=== PATIENT | female | born 1965 | race Caucasian/White ===

== ENCOUNTER 2023-03-23 04:15 | Inpatient (IN) | payer MEDICAID ==
[~2023-03-23] VITALS: Ht 157.5 cm; Wt 73.6 kg
[2023-03-23] MEDS ORDERED: LABETALOL HCL 5 MG/ML 4ML SYRINGE IV ONE (04:45)
[2023-03-23] MEDS ORDERED: ONDANSETRON HCL 4 MG/2 ML VIAL IV ONE (04:45)
[2023-03-23 05:28] VITALS: PULSE 73; RESP 18; O2SAT 96
[2023-03-23 05:52] LABS: Basophils # (auto) 0 10 ^3/uL (0-0.2); Basophils % (auto) 0.3 % (0.0-2.0); Eosinophils # (auto) 0 10 ^3/uL (0-0.8); Hematocrit 45.8 % (36.0-46.0); Hemoglobin 15.4 g/dL (12.2-16.2); Lymphocytes # (auto) 0.8 10 ^3/uL (0.4-5.4); Lymphocytes % (auto) 7.1 % (10.0-50.0); Mean Corpuscular Hemoglobin 31.3 pg (28.0-32.0); Mean Corpuscular Hgb Conc. 33.7 g/dL (32.0-36.0); Monocytes # (auto) 0.3 10 ^3/uL (0-1.3); Monocytes % (auto) 2.5 % (0.0-12.0); Neutrophils # (auto) 10.1 10 ^3/uL (1.6-8.6); Neutrophils % (auto) 90.1 % (37.0-80.0); Nucleated Red Blood Cells % 0.1 %; Red Blood Cells 4.92 10^6/uL (4.0-5.20); Red Cell Distribution Width 14.3 % (11.8-14.3); White Blood Cell 11.2 10^3/uL (4.4-10.8)
[2023-03-23 06:11] LABS: Potassium 3.3 mmol/L (3.5-5.1)
[2023-03-23 06:20] LABS: Albumin 4.2 g/dL (3.4-5.0); BUN/Creatinine Ratio 16.1 (10.0-20.0); Bilirubin, Total 0.3 mg/dL (0.2-1.0); Calcium 10.2 mg/dL (8.5-10.1); Total Protein 8.6 g/dL (6.4-8.2)
[2023-03-23] MEDS ORDERED: MORPHINE SULFATE 4 MG/ML SYR/VIAL IV ONE (06:45)
[2023-03-23] MEDS ORDERED: PROCHLORPERAZINE EDISYLATE 5 MG/ML 2ML VIAL IV ONE (06:45)
[2023-03-23] MEDS ORDERED: SODIUM CHLORIDE 0.9% 500 ML IVB ONE (06:45)
[2023-03-23] MEDS ORDERED: cloNIDine HCL 0.1 MG TAB PO ONE (07:15)
[2023-03-23 08:00] VITALS: PULSE 78; RESP 17; O2SAT 96
[2023-03-23] MEDS ORDERED: POTASSIUM CHL 20 Meq TABLET PO ONE (08:45)
[2023-03-23 10:00] VITALS: TEMP 98.6
[2023-03-23] MEDS ORDERED: hydrALAZINE HCL 20 MG/ML VL IV ONE (10:00)
[2023-03-23] MEDS ORDERED: hydrALAZINE HCL 20 MG/ML VL IV PRN (10:45)
[2023-03-23] MEDS ORDERED: ONDANSETRON HCL 4 MG/2 ML VIAL IV PRN (10:45)
[2023-03-23] MEDS ORDERED: MORPHINE SULFATE INJ 2 MG/ml SYRG IV PRN (10:45)
[2023-03-23] MEDS ORDERED: DEXTROSE (50%) 50ML SYRG IV PRN (10:45)
[2023-03-23] MEDS ORDERED: DOCUSATE SOD 100 MG CAP PO PRN (10:45)
[2023-03-23] MEDS ORDERED: SODIUM CHLORIDE 0.9% 1,000 ML IV SCH (10:45)
[2023-03-23] MEDS ORDERED: InsuLIN REG 1unit/0.01ml Soln (100units/ml) SC SCH (11:30)
[2023-03-23] MEDS ORDERED: ACCU-CHEK COMFORT CURVE STRIP VI SCH (11:30)
[2023-03-23] MEDS ORDERED: PROCHLORPERAZINE EDISYLATE 5 MG/ML 2ML VIAL IV PRN (12:00)
[2023-03-23 14:00] VITALS: BP 124/78; PULSE 92; RESP 17; O2SAT 98
[2023-03-23 14:13] LABS: INR 1.03 (0.9-1.15); Prothrombin Time 10.8 sec (9.3-11.8)
[2023-03-23] MEDS ORDERED: ATORVASTATIN 20 MG TAB PO SCH (22:00)
[2023-03-23] MEDS ORDERED: METOPROLOL TARTRATE 25 MG TAB PO SCH (22:00)
[2023-03-24] MEDS ORDERED: ASPirin 81 mg TAB PO SCH (10:00)
== END 2023-03-23 14:50 | disposition left against medical advice (07) | DRG 199 ==
LOC: ER 04:15 → OVERFLOW 10:51
PROVIDERS: ADMIT Nurse Practitioner Family; ATTEND Nurse Practitioner Family
DX: I16.1 Hypertensive emergency (principal); N17.9 Acute kidney failure, unspecified; I24.9 Acute ischemic heart disease, unspecified; D72.829 Elevated white blood cell count, unspecified; E87.6 Hypokalemia; G89.29 Other chronic pain; I10 Essential (primary) hypertension; E86.0 Dehydration; R51.9 Headache, unspecified; Z53.29 Procedure and treatment not carried out because of patient's decision for other reasons; F41.9 Anxiety disorder, unspecified; M54.9 Dorsalgia, unspecified; R73.9 Hyperglycemia, unspecified; Z98.51 Tubal ligation status
CPT/HCPCS: 36415; 70450; 74176; 80053; 82962; 83036; 83690; 84484; 85025; 85610; 93005; 93306; 96374; 96375; G0378; J2405; J3490

== ENCOUNTER 2023-11-23 11:23 | Emergency (ER) | payer MEDICAID ==
[~2023-11-23] VITALS: Ht 157.5 cm; Wt 66.1 kg
[2023-11-23 11:32] VITALS: BP 149/64; PULSE 91; RESP 16; O2SAT 96
[2023-11-23 12:12] LABS: Basophils # (auto) 0 10 ^3/uL (0-0.2); Basophils % (auto) 0.3 % (0.0-2.0); Eosinophils # (auto) 0 10 ^3/uL (0-0.8); Eosinophils % (auto) 0.1 % (0.0-7.0); Hematocrit 43.5 % (36.0-46.0); Hemoglobin 14.7 g/dL (12.2-16.2); Lymphocytes # (auto) 1.7 10 ^3/uL (0.4-5.4); Mean Corpuscular Hemoglobin 31.5 pg (28.0-32.0); Mean Corpuscular Hgb Conc. 33.7 g/dL (32.0-36.0); Mean Corpuscular Volume 93.5 fL (80.0-100.0); Monocytes # (auto) 0.5 10 ^3/uL (0-1.3); Monocytes % (auto) 4.3 % (0.0-12.0); Neutrophils # (auto) 9.7 10 ^3/uL (1.6-8.6); Neutrophils % (auto) 81.3 % (37.0-80.0); Red Blood Cells 4.65 10^6/uL (4.0-5.20); Red Cell Distribution Width 15.5 % (11.8-14.3); White Blood Cell 11.9 10^3/uL (4.4-10.8)
[2023-11-23 12:16] LABS: Alanine Aminotransferase 23 U/L (7-40); Albumin 4.6 g/dL (3.2-4.8); Alkaline Phosphatase 97 U/L (46-116); Anion Gap 12 (5-15); Aspartate Aminotransferase 24 U/L (13-40); BUN/Creatinine Ratio 19.8 (10.0-20.0); Bilirubin, Total 0.8 mg/dL (0.2-1.0); Blood Urea Nitrogen 17 mg/dL (9-23); Calcium 10.2 mg/dL (8.5-10.1); Carbon Dioxide 20 mmol/L (20-30); Chloride 108 mmol/L (98-107); Glucose 145 mg/dL (74-106); Potassium 3.5 mmol/L (3.5-5.1); Sodium 140 mmol/L (136-145); Total Protein 7.1 g/dL (5.7-8.2)
[2023-11-23] MEDS ORDERED: ONDANSETRON HCL 4 MG/2 ML VIAL IV ONE (14:00)
[2023-11-23] MEDS ORDERED: SODIUM CHLORIDE 0.9% 1,000 ML IV ONE ×2 (14:00)
[2023-11-23] MEDS ORDERED: MORPHINE SULFATE 4 MG/ML SYR/VIAL IV ONE (14:00)
[2023-11-23] MEDS ORDERED: GABA-1250 PO (16:13)
[2023-11-23] MEDS ORDERED: TIZA-142 PO (16:13)
[2023-11-23] MEDS ORDERED: PANTOPRAZOLE 40 MG/10 ML VIAL INJ IV ONE (16:15)
[2023-11-23] MEDS ORDERED: metroNIDAZOLE 500MG/100ML 100 ML IV ONE (16:15)
[2023-11-23] MEDS ORDERED: cefTRIAXone 1GM/50ML D5W 50 ML IV ONE (16:15)
[2023-11-23] MEDS ORDERED: KETOROLAC TROMETH 30 MG/ML 1ML VIAL IV ONE (16:15)
[2023-11-23] MEDS ORDERED: ACETAMINOPHEN 325 MG TAB PO PRN (16:15)
[2023-11-23] MEDS ORDERED: ONDANSETRON HCL 4 MG/2 ML VIAL IV PRN (16:15)
[2023-11-23] MEDS ORDERED: SODIUM CHLORIDE 0.9% 1,000 ML IV SCH (16:15)
[2023-11-23] MEDS ORDERED: TIZANIDINE HYDROCHLORIDE PO PRN (16:15)
[2023-11-23] MEDS ORDERED: metroNIDAZOLE 500MG/100ML 100 ML IV SCH (22:00)
[2023-11-24] MEDS ORDERED: cefTRIAXone 1GM/50ML D5W 50 ML IV SCH (09:00)
[2023-11-24] MEDS ORDERED: PANTOPRAZOLE 40 MG/10 ML VIAL INJ IV SCH (10:00)
[2023-11-24] MEDS ORDERED: GABAPENTIN 300 MG CAP PO SCH (10:00)
[2023-11-24] MEDS ORDERED: ENOXAPARIN SOD 40 MG/0.4 ML SYRINGE SC SCH (10:00)
== END 2023-11-23 13:40 | disposition left against medical advice (07) ==
LOC: ER 11:23 → OVERFLOW 16:10 → UNDOADMIN 16:10
DX: R10.13 Epigastric pain (principal); I10 Essential (primary) hypertension; F41.9 Anxiety disorder, unspecified; F15.90 Other stimulant use, unspecified, uncomplicated; Z98.890 Other specified postprocedural states
CPT/HCPCS: 36415; 80053; 85025

== ENCOUNTER 2025-04-26 10:12 | Inpatient (IN) | payer MEDICAID, OTHER ==
[~2025-04-26] VITALS: Ht 157.5 cm; Wt 68.6 kg
[~2025-04-26 10:12] MED LIST: GABA-1250 PO; TIZA-142 PO
--- NOTE | 2025-04-26 10:22 | ED.PDOC ---
GI ASSESSMENT HPI Comments 59-year-old female presents here with abdominal pain and vomiting that began 3 days ago. She states she had a massage done at a normal place earlier in the day and 830 that evening began to have abdominal pain and vomiting. Denies any diarrhea. Denies any cough cold runny nose fever or chills. No history was some type of pain. Denies any sick contacts. 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 History Family History Family History: Family hx of Cancer Social History Smoker: Non-Smoker Alcohol: Denies ETOH Use Drugs: Marijuana Lives In: Home All Other Systems: Reviewed and Negative Physical Exam General Appearance: Mild Distress, Normal HEENT: Normal ENT Inspection, Pharynx Normal, TMs Normal Neck: Full Range of Motion, Non-Tender, Normal, Normal Inspection Respiratory: Chest Non-Tender, Lungs Clear, No Accessory Muscle Use, No Respiratory Distress, Normal Breath Sounds Cardiovascular: No Edema, No JVD, No Murmur, No Gallop, Normal Peripheral Pulses, Regular Rate/Rhythm Breast Exam: Deferred Gastrointestinal: No Organomegaly, No Pulsatile Mass, Normal Bowel Sounds, Soft, Tenderness (Mild epigastric tenderness to palpation) Genitalia: Deferred Pelvic: Deferred Rectal: Deferred Extremities: No calf tenderness, Normal capillary refill, Normal inspection, Normal range of motion, Non-tender, No pedal edema Musculoskeletal : Apperance: Normal Neurologic: Alert, hydroponics worker II-XII nml as Tested, No Motor Deficits, Normal Affect, Normal Mood, No Sensory Deficits Cerebellar Function: Normal Reflexes: Normal Skin: Dry, Normal Color, Warm Lymphatic: No Adenopathy EKG EKG : Comments Rate is 68 significant artifact, no significant ST changes Was a procedure done? Was a procedure done?: No GI differential Dx Differential Diagnosis: Other Other Differential Diagnosis Gastritis esophagitis, cholecystitis, cholecystitis, biliary colic, small-bowel obstruction, gastric ulcer, dehydration, electrolyte disturbance X-Ray, Labs, Meds, VS Vital Signs Date Time Temp Pulse Resp B/P (MAP) Pulse Ox O2 Delivery O2 Flow Rate FiO2 04/26/25 13:28 78 18 155/96 04/26/25 12:28 69 18 172/95 04/26/25 12:23 69 18 98 Room Air 04/26/25 12:23 99.2 69 18 172/95 (120) 98 99.2 04/26/25 10:20 68 04/26/25 10:13 98.9 83 18 99 98.9 Lab Test 04/26/25 10:37 Range/Units White Blood Count 20.8 H 4.4-10.8 10^3/uL Red Blood Count 4.55 4.0-5.20 10^6/uL Hemoglobin 14.9 12.2-16.2 g/dL Hematocrit 43.3 36.0-46.0 % Mean Corpuscular Volume 95.2 80.0-100.0 fL Mean Corpuscular Hemoglobin 32.7 H 28.0-32.0 pg Mean Corpuscular Hemoglobin Concent 34.4 32.0-36.0 g/dL Red Cell Distribution Width 14.9 H 11.8-14.3 % Platelet Count 258 140-450 10^3/uL Mean Platelet Volume 8.3 6.9-10.8 fL Neutrophils (%) (Auto) 83.1 H 37.0-80.0 % Lymphocytes (%) (Auto) 9.2 L 10.0-50.0 % Monocytes (%) (Auto) 7.5 0.0-12.0 % Eosinophils (%) (Auto) 0.0 0.0-7.0 % Basophils (%) (Auto) 0.2 0.0-2.0 % Neutrophils # (Auto) 17.2 H 1.6-8.6 10 ^3/uL Lymphocytes # (Auto) 1.9 0.4-5.4 10 ^3/uL Monocytes # (Auto) 1.6 H 0-1.3 10 ^3/uL Eosinophils # (Auto) 0 0-0.8 10 ^3/uL Basophils # (Auto) 0 0-0.2 10 ^3/uL Nucleated Red Blood Cells 0.1 % Sodium Level 139 136-145 mmol/L Potassium Level 3.4 L 3.5-5.1 mmol/L Chloride Level 103 98-107 mmol/L Carbon Dioxide Level 21 20-31 mmol/L Anion Gap 15 5-15 Blood Urea Nitrogen 20 9-23 mg/dL Creatinine 1.03 H 0.550-1.02 mg/dL Glomerular Filtration Rate Calc 62 >90 mL/min BUN/Creatinine Ratio 19.4 10.0-20.0 Serum Glucose 142 H 74-106 mg/dL Calcium Level 10.4 8.7-10.4 mg/dL Total Bilirubin 1.1 H 0.2-1.0 mg/dL Aspartate Amino Transferase (AST) 43 H 13-40 U/L Alanine Aminotransferase (ALT) 22 7-40 U/L Alkaline Phosphatase 97 46-116 U/L Total Protein 8.3 H 5.7-8.2 g/dL Albumin 5.0 H 3.2-4.8 g/dL Lipase 32 12-53 U/L Plasma/Serum Blood Alcohol < 3.0 <10 mg/dL Current Medications Medications (Trade) Dose Ordered Sig/Avelina Route Start Time Stop Time Status Last Admin Al Hydrox/Mg Hydrox/Simethicone (Maalox Plus) 30 ml ONCE ONCE PO 04/26/25 10:30 04/26/25 10:31 DC 04/26/25 12:26 Ondansetron HCl (Zofran) 4 mg ONCE ONCE IV 04/26/25 10:30 04/26/25 10:31 DC 04/26/25 12:23 Sodium Chloride 500 ml @ 500 mls/hr Q1H ONCE IV 04/26/25 10:30 04/26/25 11:29 DC 04/26/25 12:22 Hydromorphone HCl (Dilaudid Injection) 0.5 mg ONCE ONCE IV 04/26/25 11:15 04/26/25 11:16 DC 04/26/25 12:[address] [address] Ph: [phone] DIAGNOSTIC IMAGING Diagnostic Imaging Report : [id number] Signed PATIENT: HUMBLE VICTORIA ACCT: [id number] UNIT: [id number] : 1965 LOC: ER ROOM / BED: / AGE / SEX: 59 / F ADM STATUS: REG ER SERVICE 1115 ORDERING PHYSICIAN: DELICIA DOLAN MD PROCEDURE(s): GBUS - GALLBLADDER REASON: Rule out cholecystitis ORDER NUMBER(s): [id number], ACCESSION NUMBER(s): [id number] INDICATION: Rule out cholecystitis TECHNIQUE: Multiple real-time sonographic images of the abdomen were obtained. COMPARISON: None FINDINGS: The liver is homogenous in echogenicity. No intrahepatic biliary ductal dilatation is noted. No hepatic masses were seen. The gallbladder wall measures mm and is normal in size. No gallstones or sludge are seen. The common duct measures mm and is normal in size. No pericholecystic fluid is noted. The right kidney measures cm and is normal in size. The right renal echogenicity, contour and cortical thickness are within normal limits. No hydronephrosis or large masses are seen. The left kidney measures cm and is normal in size. The left renal echogenicity, contour, and cortical thickness are within normal limits. No hydronephrosis or large masses are seen. The spleen measures cm, within normal limits. The echogenicity is within normal limits. The pancreas is not well visualized. The aorta is not well visualized. The ivc is not well visualized. IMPRESSION: 1. Normal exam of the abdomen. ATED BY: MICHELE GIBSON MD DICTATED DATE/TIME: 04/26/25 115 SIGNED BY: MICHELE GIBSON MD SIGNED DATE/TIME: 04/26/25 115 CC: [place] [address] Ph: [phone] DIAGNOSTIC IMAGING Diagnostic Imaging Report : [id number] Signed PATIENT: HUMBLE VICTORIA ACCT: [id number] UNIT: [id number] : 1965 LOC: ER ROOM / BED: / AGE / SEX: 59 / F ADM STATUS: REG ER SERVICE 1107 ORDERING PHYSICIAN: DELICIA DOLAN MD PROCEDURE(s): ABPL - CT AB PEL WO CON-NO ORAL OR IV REASON: Abdominal pain ORDER NUMBER(s): [id number], ACCESSION NUMBER(s): [id number] CT CT AB PEL WO CON-NO ORAL OR IV INDICATION: Abdominal pain EXAM DATE: 04/26/2025 11:14 AM COMPARISON: CT CT AB PEL WO CON-NO ORAL OR IV on DOS: 03/23/23 RADIATION DOSE: CTDIvol: 6.77 mGy, DLP: 322.55 mGy*cm PROCEDURE: Helical CT images were obtained of the abdomen and pelvis without IV contrast Sagittal and coronal reconstructions are provided. ORAL CONTRAST: None. ADDITIONAL IMAGES / REFORMATS: None All CT scans at this medical facility are performed using dose modulation techniques as appropriate to a performed exam including the following: Automated exposure control was utilized; adjustment of the MA and/or KV according to patient size; and use of iterative reconstruction technique. FINDINGS: LUNG BASE: Mild bibasilar atelectasis. LIVER: Normal. GALLBLADDER AND BILIARY TREE: No calcified gallstones. Normal caliber wall. No intra- or extrahepatic biliary ductal dilation. PANCREAS: Coarse calcification at the pancreatic head. SPLEEN: Normal. BOWEL: Moderate colonic diverticulosis. Normal appendix. ADRENALS: Normal. KIDNEYS AND URETER: Normal. BLADDER: Normal. REPRODUCTIVE ORGANS: Normal. LYMPH NODES:No lymphadenopathy. PERITONEUM: No ascites or free air. No other fluid collection. VESSELS: Scattered atherosclerotic calcifications are noted. RETROPERITONEUM: Normal. ABDOMINAL WALL: Normal. BONES: Scattered osseous degenerative changes are noted. IMPRESSION: No acute intraabdominal abnormality. ATED BY: ROYER VILLALOBOS MD DICTATED DATE/TIME: 04/26/25 1153 SIGNED BY: ROYER VILLALOBOS MD SIGNED DATE/TIME: 04/26/25 1153 CC: 59-year-old female presents here with abdominal pain and vomiting. On my examination she does have some epigastric tenderness to palpation. My differential includes cholecystitis, biliary colic, pancreatitis, food poisoning, gastroenteritis. She has no diarrhea. At this time the exact cause of her abdominal pain is unclear. I have ordered a CBC, CMP, lipase, ultrasound of the gallbladder as well as a CT abdomen pelvis. CBC has returned with a WBC count of 20. Unclear etiology. CMP demonstrates mild elevation in her bilirubin of 1.1. I have ordered an ultrasound to rule out gallbladder disease her elevated she is in of her bilirubin. Ultrasound is unremarkable as is the CT abdomen pelvis . At this time hospitalist team has been contacted for admission.. However she is still vomiting and has a CBC of 20. Of unclear etiology Time of 1ST Reevaluation: 14:09 Reevaluation 1ST: Unchanged Patient Education/Counseling: Diagnosis, Treatment Family Education/Counseling: No Family Present SEPSIS Sepsis Screen Date sepsis recognized/suspect: Apr 26, 2025 Time Sepsis recognized/suspect: 1013 Recent Procedure: No On Antibiotic Therapy: No Respiratory Rate >20: No Heart Rate >90: No Temp<36 C (96.8 F) or >38.3 C: No SBP <90 or MAP <65 mmHG: No New Acute Mental Status Change: No Is the patient on CPAP, BIPAP,: No Physician Orders Urinalysis (04/26/25 10:25) Drug Screen (04/26/25 10:25) Ct Ab Pel Wo Con-No Oral Or Iv (04/26/25 11:07) Gallbladder (04/26/25 11:15) Vital Signs Date Time Temp Pulse Resp B/P (MAP) Pulse Ox O2 Delivery O2 Flow Rate FiO2 04/26/25 13:28 78 18 155/96 04/26/25 12:28 69 18 172/95 04/26/25 12:23 69 18 98 Room Air 04/26/25 12:23 99.2 69 18 172/95 (120) 98 99.2 04/26/25 10:20 68 04/26/25 10:13 98.9 83 18 99 98.9 Laboratory Tests Test 04/26/25 10:37 White Blood Count 20.8 10^3/uL (4.4-10.8) H Medications Medications Dose Ordered Sig/Avelina Route Start Time Stop Time Status Last Admin Dose Admin Al Hydrox/Mg Hydrox/Simethicone 30 ml ONCE ONCE PO 04/26/25 10:30 04/26/25 10:31 DC 04/26/25 12:26 Hydromorphone HCl 0.5 mg ONCE ONCE IV 04/26/25 11:15 04/26/25 11:16 DC 04/26/25 12:28 Ondansetron HCl 4 mg ONCE ONCE IV 04/26/25 10:30 04/26/25 10:31 DC 04/26/25 12:23 Sodium Chloride 500 ml @ 500 mls/hr Q1H ONCE IV 04/26/25 10:30 04/26/25 11:29 DC 04/26/25 12:22 Departure 1 Departure Time of Disposition: 14:12 Impression: Primary Impression: Elevated bilirubin Additional Impressions: Leukocytosis Qualified Codes: D72.829 - Elevated white blood cell count, unspecified Vomiting Qualified Codes: R11.10 - Vomiting, unspecified Disposition: ADMITTED INPATIENT Condition: Fair Critical Care Note Critical Care Time?: No Stability Stability form required: No Heart Score Heart Score: Heart Score Response (Comments) Value History N/A 0 EKG N/A 0 Age N/A 0 Risk Factors N/A 0 Troponin N/A 0 Total 0 DELICIA DOLAN MD Apr 26, 2025 10:22
[2025-04-26 11:00] LABS: Hematocrit 43.3 % (36.0-46.0); Hemoglobin 14.9 g/dL (12.2-16.2); Mean Corpuscular Hemoglobin 32.7 pg (28.0-32.0); Mean Corpuscular Volume 95.2 fL (80.0-100.0); Nucleated Red Blood Cells % 0.1 %
[2025-04-26 11:08] LABS: Alanine Aminotransferase 22 U/L (7-40); Alkaline Phosphatase 97 U/L (46-116); Anion Gap 15 (5-15); BUN/Creatinine Ratio 19.4 (10.0-20.0); Blood Urea Nitrogen 20 mg/dL (9-23); Calcium 10.4 mg/dL (8.7-10.4); Carbon Dioxide 21 mmol/L (20-31); Chloride 103 mmol/L (98-107); Sodium 139 mmol/L (136-145)
[2025-04-26 11:09] LABS: Albumin 5.0 g/dL (3.2-4.8); Bilirubin, Total 1.1 mg/dL (0.2-1.0); Glucose 142 mg/dL (74-106); Potassium 3.4 mmol/L (3.5-5.1); Total Protein 8.3 g/dL (5.7-8.2)
[2025-04-26 11:39] LABS: Lipase 32 U/L (12-53)
--- NOTE | 2025-04-26 11:54 | DVH ---
INDICATION: Rule out cholecystitis TECHNIQUE: Multiple real-time sonographic images of the abdomen were obtained. COMPARISON: None FINDINGS: The liver is homogenous in echogenicity. No intrahepatic biliary ductal dilatation is noted . No hepatic masses were seen. The gallbladder wall measures mm and is normal in size. No gallstones or sludge are seen. The com mon duct measures mm and is normal in size. No pericholecystic fluid is noted. The right kidney measures cm and is normal in size. The right renal echogenicity, contour and cortic al thickness are within normal limits. No hydronephrosis or large masses are seen. The left kidney measures cm and is normal in size. The left renal echogenicity, contour, and cortica l thickness are within normal limits. No hydronephrosis or large masses are seen. The spleen measures cm, within normal limits. The echogenicity is within normal limits. The pancreas is not well visualized. The aorta is not well visualized. The ivc is not well visualized. IMPRESSION: 1. Normal exam of the abdomen.
--- NOTE | 2025-04-26 11:55 | DVH ---
CT CT AB PEL WO CON-NO ORAL OR IV INDICATION: Abdominal pain EXAM DATE: 04/26/2025 11:14 AM COMPARISON: CT CT AB PEL WO CON-NO ORAL OR IV on DOS: 03/23/23 RADIATION DOSE: CTDIvol: 6.77 mGy, DLP: 322.55 mGy*cm PROCEDURE: Helical CT images were obtained of the abdomen and pelvis without IV contrast Sagittal and coronal reconstructions are provided. ORAL CONTRAST: None. ADDITIONAL IMAGES / REFORMATS: None All C T scans at this medical facility are performed using dose modulation techniques as appropriate to a p erformed exam including the following: Automated exposure control was utilized; adjustment of the MA and/or KV according to patient size; and use of iterative reconstruction technique. FINDINGS: LUNG BASE: Mild bibasilar atelectasis. LIVER: Normal. GALLBLADDER AND BILIARY TREE: No calcified gallstones. Normal caliber wall. No intra- or extrahepatic biliary ductal dilation. PANCREAS: Coarse calcification at the pancreatic head. SPLEEN: Normal. BOWEL: Moderate colonic diverticulosis. Normal appendix. ADRENALS: Normal. KIDNEYS AND URETER: Normal. BLADDER: Normal. REPRODUCTIVE ORGANS: Normal. LYMPH NODES:No lymphadenopathy. PERITONEUM: No ascites or free air. No other fluid collection. VESSELS: Scattered atherosclerotic calcifications are noted. RETROPERITONEUM: Normal. ABDOMINAL WALL: Normal. BONES: Scattered osseous degenerative changes are noted. IMPRESSION: No acute intraabdominal abnormality.
--- NOTE | 2025-04-26 12:01 | ECG ---
[facility] Test Date: 2025-04-26 Test Time: 10:20:34 Pat Name: HUMBLE VICTORIA Department: ED Room: 0293T Gender: F Food Production Machine Operator: gp : 1965 Requested By: DELICIA DOLAN Order Number: [id number] Reading MD: Louis Kay Measurements Intervals [place] Rate: 68 P: 69 [place]: 141 QRS: 26 QRSD: 102 T: -8 QT: 405 QTc: 431 Interpretive Statements Sinus arrhythmia with premature atrial contractions. Abnormal R-wave progression, early transition Repol abnrm suggests ischemia, inferior leads Artifact in lead(s) I,II,III,aVR,aVL,aVF Electronically Signed On 04-28-2025 18:50:33 PDT by Louis Kay Please click the below link to view image of tracing.
[2025-04-26] MEDS: SODIUM CHLORIDE 0.9% 500 ML IV ONE (12:22)
[2025-04-26] MEDS: ONDANSETRON HCL 4 MG/2 ML VIAL IV ONE (12:23)
[2025-04-26] MEDS: MAALOX PLUS or MAALOX 30 ML PO ONE (12:26)
[2025-04-26] MEDS: HYDROmorphone HCL 2 MG/ML VL/or syr IV ONE (12:28)
[2025-04-26 12:30] VITALS: PULSE 69; RESP 18; O2SAT 98
[2025-04-26 15:27] LABS: Cannabinoid Screen, Urine Pos (NEGATIVE); Opiate Scree,Urine Neg (NEGATIVE)
[2025-04-26 15:28] LABS: Amphetamine Screen, Urine Neg (NEGATIVE); Barbiturate Scree,Urine Neg (NEGATIVE); Benzodiazephine Screen, Urine Neg (NEGATIVE); Cocaine Screen, Urine Neg (NEGATIVE); Phencyclidine Screen, Urine Neg (NEGATIVE)
[2025-04-26 15:32] LABS: Urine Protein, UAD 2+ (Negative)
[2025-04-26] MEDS: ONDANSETRON HCL 4 MG/2 ML VIAL IV PRN (20:39)
[2025-04-26] MEDS: SODIUM CHLORIDE 0.9% 1,000 ML IV ONE (20:40)
[2025-04-26 20:57] LABS: Triglycerides 99.0 mg/dL (< 150)
[2025-04-26 20:58] LABS: Magnesium 2.0 mg/dL (1.6-2.6)
[2025-04-26 21:01] LABS: Cholesterol 277.0 mg/dL (< 200); HDL Cholesterol 89.0 mg/dL (40-59)
[2025-04-26 21:55] LABS: INR 1.0 (0.9-1.15); Partial Thromboplastin Time 26.8 SEC (24.5-34.5); Prothrombin Time 10.6 sec (9.3-11.8)
--- NOTE | 2025-04-26 21:58 | DVHHPRES ---
History of Present Illness Resident Creating Document: AVERY GUTIERREZ History of Present Illness Ayah Mauricio is a 59 year old female patient who presents to ED with chief complaint of intolerable flank pain 05/16 which was triggered after receiving a massage approximately 3 days ago, with posterior multiple episodes of non bloody emesis (more than 10 episodes), associated with only 3 episodes of diuresis in past three days. Patient also reports chills. 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 Ex tobacco abuse (proximally 10 pack-year history of smoking) quit one week ago. Denies current alcohol and other drug abuse Allergies: Denies Home medication: Fluoxetine and guanfacine Patient seen and examined at bedside. Currently still complains of right flank pain which radiates towards right upper quadrant of abdomen. Obtain abdominal imaging with no acute findings. Past Medical History Per HPI Past Surgical History Per HPI Family History Per HPI Past Social History Per HPI Review of Systems Review of Systems Per HPI Allergies: Coded Allergies: NO KNOWN ALLERGIES (Unverified , 03/23/23) Medications Current Medications Medications Dose Ordered Sig/Avelina Route Start Time Stop Time Status Last Admin Dose Admin Sodium Chloride 1,000 ml @ 60 mls/hr [id number] IV 04/26/25 20:15 Ondansetron HCl 4 mg Q4HP PRN IV 04/26/25 20:15 04/26/25 20:39 4 MG Ceftriaxone Sodium 50 ml @ 100 mls/hr DAILY@09 IV 04/27/25 20:00 Metronidazole 100 ml @ 100 mls/hr Q8H IV 04/27/25 04:00 Morphine Sulfate 1 mg Q4HP PRN IV 04/26/25 22:00 UNV Atorvastatin Calcium 40 mg HS PO 04/27/25 22:00 UNV Exam Vital Signs Vital Signs Date Time Temp Pulse Resp B/P (MAP) Pulse Ox O2 Delivery O2 Flow Rate FiO2 04/26/25 20:48 99.6 81 16 167/98 (121) 95 99.6 04/26/25 12:30 Room Air* 0 21 Exam Patient lying in bed, in mild distress General: Lucid, febrile, mucosae are dry Cardiovascular: Normal S1 and S2. No murmurs, gallops or rubs Respiratory: Normal ventilation mechanics. Clear lung sounds on auscultation Abdomen: Soft, nontender, no organomegaly, normal bowel sounds MSK/skin: Mobilizes 4 limbs. Skin is dry and warm Neurological: Oriented in 3 spheres. No motor no sensitive deficits. Pupils are isocoric and reactive Labs/Xrays Labs Test 04/26/25 21:16 04/26/25 20:28 04/26/25 15:00 04/26/25 10:37 Range/Units Lactic Acid Level 1.5 0.4-2.0 mmol/L Urine Color Yellow Yellow Urine Clarity Turbid H Clear Urine pH 6.0 5.0-9.0 Urine Specific [place] 1.032 1.001-1.035 Urine Protein 2+ H Negative Urine Ketones 2+ H Negative Urine Blood 2+ H Negative /uL Urine Nitrite Negative Negative Urine Bilirubin Negative Negative Urine Urobilinogen Normal Negative mg/dL Urine Leukocyte Esterase Negative Negative /uL Urine RBC 4 0 - 4 /hpf Urine Microscopic WBC 2 0-5 /HPF Urine Squamous Epithelial Cells Few <5 /hpf Urine Bacteria None seen None Seen /hpf Urine Mucus Few None Seen Urine Glucose Normal Normal mg/dL Urine Opiates Screen Neg NEGATIVE Urine Fentanyl Screen Neg NEGATIVE Urine Barbiturates Screen Neg NEGATIVE Urine Phencyclidine Screen Neg NEGATIVE Urine Amphetamines Screen Neg NEGATIVE Urine Benzodiazepines Screen Neg NEGATIVE Urine Cocaine Screen Neg NEGATIVE Urine Cannabinoids Screen Pos NEGATIVE White Blood Count 20.8 H 4.4-10.8 10^3/uL Red Blood Count 4.55 4.0-5.20 10^6/uL Hemoglobin 14.9 12.2-16.2 g/dL Hematocrit 43.3 36.0-46.0 % Mean Corpuscular Volume 95.2 80.0-100.0 fL Mean Corpuscular Hemoglobin 32.7 H 28.0-32.0 pg Mean Corpuscular Hemoglobin Concent 34.4 32.0-36.0 g/dL Red Cell Distribution Width 14.9 H 11.8-14.3 % Platelet Count 258 140-450 10^3/uL Mean Platelet Volume 8.3 6.9-10.8 fL Neutrophils (%) (Auto) 83.1 H 37.0-80.0 % Lymphocytes (%) (Auto) 9.2 L 10.0-50.0 % Monocytes (%) (Auto) 7.5 0.0-12.0 % Eosinophils (%) (Auto) 0.0 0.0-7.0 % Basophils (%) (Auto) 0.2 0.0-2.0 % Neutrophils # (Auto) 17.2 H 1.6-8.6 10 ^3/uL Lymphocytes # (Auto) 1.9 0.4-5.4 10 ^3/uL Monocytes # (Auto) 1.6 H 0-1.3 10 ^3/uL Eosinophils # (Auto) 0 0-0.8 10 ^3/uL Basophils # (Auto) 0 0-0.2 10 ^3/uL Nucleated Red Blood Cells 0.1 % Sodium Level 139 136-145 mmol/L Potassium Level 3.4 L 3.5-5.1 mmol/L Chloride Level 103 98-107 mmol/L Carbon Dioxide Level 21 20-31 mmol/L Anion Gap 15 5-15 Blood Urea Nitrogen 20 9-23 mg/dL Creatinine 1.03 H 0.550-1.02 mg/dL Glomerular Filtration Rate Calc 62 >90 mL/min BUN/Creatinine Ratio 19.4 10.0-20.0 Serum Glucose 142 H 74-106 mg/dL Hemoglobin A1c 5.5 <5.7 % A1C Calcium Level 10.4 8.7-10.4 mg/dL Phosphorus Level 2.8 2.4-5.1 mg/dL Magnesium Level 2.0 1.6-2.6 mg/dL Total Bilirubin 1.1 H 0.2-1.0 mg/dL Aspartate Amino Transferase (AST) 43 H 13-40 U/L Alanine Aminotransferase (ALT) 22 7-40 U/L Alkaline Phosphatase 97 46-116 U/L Total Protein 8.3 H 5.7-8.2 g/dL Albumin 5.0 H 3.2-4.8 g/dL Triglycerides Level 99 < 150 mg/dL Cholesterol Level 277 H < 200 mg/dL LDL Cholesterol 182 H < 100 mg/dL HDL Cholesterol 89 H 40-59 mg/dL Lipase 32 12-53 U/L Thyroid Stimulating Hormone (TSH) 1.97 0.55-4.78 uIU/mL Plasma/Serum Blood Alcohol < 3.0 <10 mg/dL SEPSIS Sepsis Screen Date sepsis recognized/suspect: Apr 26, 2025 Time Sepsis recognized/suspect: 1013 Recent Procedure: No On Antibiotic Therapy: No Respiratory Rate >20: No Heart Rate >90: No Temp<36 C (96.8 F) or >38.3 C: No SBP <90 or MAP <65 mmHG: No New Acute Mental Status Change: No Is the patient on CPAP, BIPAP,: No Physician Orders Admit (04/26/25 20:11) Sodium Chloride 0.9% (04/26/25 20:15) Ondansetron Hcl (Zofran) (04/26/25 20:15) Complete Blood Count (04/27/25 04:00) Comprehensive Metabolic Panel (04/27/25 04:00) Npo (Nothing By Mouth) Diet (04/27/25 Breakfast) Oxygen By Nasal Cannula (04/26/25 20:11) Stat Ekg For Chest Pain (04/26/25 20:11) Notify Md Of Changes From Base (04/26/25 20:11) Consultant Dietitian For 24 Hours (04/26/25 20:11) Emergency Dysrhythmia Protocol (04/26/25 20:11) Rhythm Strips Once Every Shift (04/26/25 20:11) Vitamin D, 25-Hydroxy (04/26/25 20:11) Vitamin B12 (04/26/25 20:11) PTPTT (04/26/25 20:11) Blood Culture (04/26/25 20:11) Urine Bacterial Culture (04/26/25 20:11) Stool Wbc (04/26/25 20:11) Stool Bacterial Culture (04/26/25 20:11) Ceftriaxone 1gm/50ml (Rocephin) (04/27/25 20:00) Metronidazole 500mg/100ml (Flagyl 500mg/ (04/27/25 04:00) Morphine Sulfate Injection (04/26/25 22:00) Atorvastatin (Lipitor) (04/27/25 22:00) Abdomen Complete Sonogram (04/26/25 21:48) Potassium Chl 20meq/100ml (04/26/25 22:00) Vital Signs Date Time Temp Pulse Resp B/P (MAP) Pulse Ox O2 Delivery O2 Flow Rate FiO2 04/26/25 20:48 99.6 81 16 167/98 (121) 95 99.6 Laboratory Tests Test 04/26/25 10:37 04/26/25 20:28 White Blood Count 20.8 10^3/uL (4.4-10.8) H Lactic Acid Level 1.5 mmol/L (0.4-2.0) Medications Medications Dose Ordered Sig/Avelina Route Start Time Stop Time Status Last Admin Dose Admin Al Hydrox/Mg Hydrox/Simethicone 30 ml ONCE ONCE PO 04/26/25 10:30 04/26/25 10:31 DC 04/26/25 12:26 30 ML Ceftriaxone Sodium 50 ml @ 100 mls/hr ONCE ONCE IV 04/26/25 20:15 04/26/25 20:44 DC 04/26/25 20:40 100 MLS/HR Hydromorphone HCl 0.5 mg ONCE ONCE IV 04/26/25 11:15 04/26/25 11:16 DC 04/26/25 12:28 0.5 MG Ondansetron HCl 4 mg ONCE ONCE IV 04/26/25 10:30 04/26/25 10:31 DC 04/26/25 12:23 4 MG Ondansetron HCl 4 mg Q4HP PRN IV 04/26/25 20:15 04/26/25 20:39 4 MG Sodium Chloride 500 ml @ 500 mls/hr Q1H ONCE IV 04/26/25 10:30 04/26/25 11:29 DC 04/26/25 12:22 500 MLS/HR Sodium Chloride 1,000 ml @ 1,000 mls/hr Q1H ONCE IV 04/26/25 20:15 04/26/25 21:14 DC 04/26/25 20:40 1,000 MLS/HR Assessment/Plan Assessment/Plan Sepsis secondary to probable gastroenteritis Intractable nausea and nonbloody emesis Questionable hyperemesis due to cannabinoids Completed abdominal imaging (abdomen and pelvis CT, kidney ultrasound and liver ultrasound) which showed no acute findings. If deemed necessary, evaluate need for MRCP Obtain acharya cultures (blood, urine and stool) Currently under empiric IV antibiotic (metronidazole and ceftriaxone) On Zofran IV p.r.n. Counseled strongly on marijuana cessation Indicated bowel rest (NPO) CLAUDIA hemodynamically mediated (VMN) Microscopic hematuria Hypokalemia Questionable renal lipoma Currently on IV fluids Replenish electrolytes Completed kidney ultrasound with no abnormal findings Moderate mitral regurgitation Echocardiogram from 2022 showed LVEF 65%, normal RV function and moderate MR. Ordered new echocardiogram Caution with IV fluid resuscitation Chronic back pain Per patient she received massage which triggered all symptoms. Abdomen and pelvis CT showed no abnormal paraspinal images. Optimize medical treatment for pain management Anxiety Depression ADHD Indicated fluoxetine, administer if patient can tolerate Hypertension Dyslipidemia (newly diagnosed) Continue losartan if patient tolerates Started atorvastatin, gave if tolerated Polysubstance abuse (marijuana and tobacco) Patient quit tobacco one week ago (she has 10 pack-year history of smoking) Counseled strongly on cessation of tobacco and marijuana use. Goals of care discussed with patient for over 18 minutes: Full code status Discussed plan with Dr. Gandhi, patient and nurses: Admitted to telemetry due to sepsis likely secondary to gastroenteritis associated with hypokalemia. Patient will require empiric IV antibiotic and IV fluid resuscitation. Pending results of culture. Plan discussed with: Patient, Other (Nurses) My Orders Orders - AVERY GUTIERREZ RESIDENT Procedure Category Date Status Time Admit ADMIT 04/26/25 Transmitted 20:11 Sodium Chloride 0.9% PHA 04/26/25 In Process 20:15 Ondansetron Hcl PHA 04/26/25 In Process (Zofran) 20:15 Complete Blood Count LAB 04/27/25 Verified 04:00 Comprehensive LAB 04/27/25 Verified Metabolic Panel 04:00 Npo (Nothing By DIET 04/27/25 Transmitted Mouth) Diet Breakfast Oxygen By Nasal RT 04/26/25 Transmitted Cannula 20:11 Stat Ekg For Chest AMIRAH 04/26/25 In Process Pain 20:11 Notify Of Changes AMIRAH 04/26/25 In Process From Base 20:11 Consultant Dietitian For AMIRAH 04/26/25 In Process 24 Hours 20:11 Emergency Dysrhythmia AMIRAH 04/26/25 In Process Protocol 20:11 Rhythm Strips Once AMIRAH 04/26/25 In Process Every Shift 20:11 Vitamin D, 25-Hydroxy LAB 04/26/25 In Process 20:11 Vitamin B12 LAB 04/26/25 In Process 20:11 PTPTT LAB 04/26/25 In Process 20:11 Blood Culture LORI 04/26/25 In Process 20:11 Urine Bacterial LORI 04/26/25 Logged Culture 20:11 Stool Wbc LAB 04/26/25 Logged 20:11 Stool Bacterial LORI 04/26/25 Logged Culture 20:11 Ceftriaxone 1gm/50ml PHA 04/27/25 In Process (Rocephin) 20:00 Metronidazole PHA 04/27/25 In Process 500mg/100ml (Flagyl 04:00 Morphine Sulfate PHA 04/26/25 Logged Injection 22:00 Atorvastatin (Lipitor) PHA 04/27/25 Logged 22:00 Abdomen Complete US 04/26/25 Logged Sonogram 21:48 Potassium Chl PHA 04/26/25 Logged 20meq/100ml 22:00 Date of Service: Apr 26, 2025 Billing Provider: SOLANGE GANDHI MD Common Visit Codes: [id number] INP/OBS CARE (HIGH) Secondary Visit Codes: [id number] CARE PLAN 30 MINUTES AVERY GUTIERREZ RESIDENT Apr 26, 2025 21:58
[2025-04-26 22:00] VITALS: PULSE 63; RESP 18; O2SAT 96
[2025-04-26] MEDS: SODIUM CHLORIDE 0.9% 1,000 ML IV SCH (22:13)
[2025-04-26] MEDS: MORPHINE SULFATE INJ 2 MG/ml SYRG IV PRN (22:29)
--- NOTE | 2025-04-26 22:31 | DVH ---
INDICATION: Rule out kidney stones TECHNIQUE: Multiple real-time sonographic images of the kidneys and bladder were obtained. COMPARISON: ECHO 2D MODE CARDIAC DOP on DOS: 03/23/23 FINDINGS: RIGHT kidney measures 9.6 cm in length. No hydronephrosis. LEFT kidney measures 9.3 cm in length. No hydronephrosis. No large intraluminal masses are seen in the bladder. Prevoid bladder volume 80 mL. Bladder wall thickness 1.3 mm. Post void residual not obtained. IMPRESSION: 1. No hydronephrosis. 2. Right kidney measures 9.6 cm. Left kidney measures 9.3 cm
[2025-04-27] VITALS (7 sets, daily range): BP systolic 115–154; BP diastolic 71–84; PULSE 57–76; RESP 16–18; TEMP 98.2–98.9; O2SAT 94–100
[2025-04-27] MEDS: POTASSIUM CHL 20MEQ/100ML 100 ML IV ONE (00:11)
[2025-04-27] MEDS: PANTOPRAZOLE 40 MG/10 ML VIAL INJ IV ONE (04:10)
[2025-04-27 06:18] LABS: Hematocrit 38.7 % (36.0-46.0); Hemoglobin 13.2 g/dL (12.2-16.2); Mean Corpuscular Hemoglobin 33.0 pg (28.0-32.0); Mean Corpuscular Volume 96.3 fL (80.0-100.0); Nucleated Red Blood Cells % 0.1 %
[2025-04-27 06:33] LABS: Alanine Aminotransferase 21 U/L (7-40); Albumin 4.0 g/dL (3.2-4.8); Alkaline Phosphatase 78 U/L (46-116); Anion Gap 10 (5-15); BUN/Creatinine Ratio 22.2 (10.0-20.0); Bilirubin, Total 0.9 mg/dL (0.2-1.0); Blood Urea Nitrogen 16 mg/dL (9-23); Calcium 9.0 mg/dL (8.7-10.4); Carbon Dioxide 25 mmol/L (20-31); Chloride 106 mmol/L (98-107); Glucose 87 mg/dL (74-106); Potassium 3.7 mmol/L (3.5-5.1); Sodium 141 mmol/L (136-145); Total Protein 6.7 g/dL (5.7-8.2)
[2025-04-27 08:59] LABS: COVID19 ANTIGEN SOFIA FIA NEGATIVE (NEGATIVE)
[2025-04-27] MEDS: PANTOPRAZOLE 40 MG/10 ML VIAL INJ IV SCH (10:40)
[2025-04-27] MEDS: ENOXAPARIN SOD 40 MG/0.4 ML SYRINGE SC SCH (10:41)
[2025-04-27] MEDS: LOSARTAN POTASSIUM 50 MG TAB PO SCH (10:42)
--- NOTE | 2025-04-27 13:26 | DVHPN2 ---
Progress Note - Dictate Date Seen: Apr 27, 2025 Medical Necessity Reason Pt with a Central, PICC or Fol: No vital signs Vital Sign Date Time Temp Pulse Resp B/P (MAP) Pulse Ox O2 Delivery O2 Flow Rate FiO2 04/27/25 11:40 66 17 150/90 04/27/25 09:00 98.7 95 98.7 04/26/25 22:00 Room Air* 0 21 Total Intake and Output 04/26/25 04/26/25 04/27/25 15:00 23:00 07:00 Intake Total 500 ml 800 ml Output Total 1 ml Balance 500 ml 799 ml medications Current Medications Medications Dose Ordered Sig/Avelina Route Start Time Stop Time Status Last Admin Dose Admin Sodium Chloride 1,000 ml @ 60 mls/hr [id number] IV 04/26/25 20:15 04/26/25 22:13 60 MLS/HR Ondansetron HCl 4 mg Q4HP PRN IV 04/26/25 20:15 04/27/25 10:41 4 MG Ceftriaxone Sodium 50 ml @ 100 mls/hr DAILY@09 IV 04/27/25 20:00 Morphine Sulfate 1 mg Q4HP PRN IV 04/26/25 22:00 04/27/25 11:40 1 MG Atorvastatin Calcium 40 mg HS PO 04/27/25 22:00 Losartan Potassium 50 mg DAILY PO 04/27/25 10:00 04/27/25 10:42 50 MG Metronidazole 100 ml @ 100 mls/hr Q8H IV 04/27/25 06:00 04/27/25 06:26 100 MLS/HR Fluoxetine HCl 20 mg DAILY PO 04/27/25 10:00 04/27/25 10:41 20 MG Guaifenesin 200 mg Q4HP PRN PO 04/27/25 03:45 Pantoprazole Sodium 40 mg DAILY IV 04/27/25 10:00 04/27/25 10:40 40 MG Enoxaparin Sodium 40 mg DAILY SC 04/27/25 10:00 04/27/25 10:41 40 MG objective General Appearance: alert, no distress HEENT: EOMI, PERRLA, normal external inspect of ears, no icterus, no nasal drainage Neck: no carotid bruit, no jugular venous distention (JVD), no lymphadenopathy Chest: normal thorax Respiratory: clear to auscultation, normal air movement Cardiovascular: regular rate and rhythm, no diastolic murmur, no jugular venous distention (JVD), no rub, no systolic murmur Abdominal: soft, no hepatomegaly, no mass, no splenomegaly, no tenderness Genitourinary: grossly normal external Musculoskeletal: no joint tenderness, no swelling Extremities: normal pulses, no calf tenderness, no clubbing, no cyanosis, no edema Skin: no bruising, no jaundice, no rash Neurological: alert, No focal deficit laboratory and microbiology Laboratory Tests 04/27/25 05:02 Test 04/27/25 05:02 Range/Units Serum Glucose 87 74-106 mg/dL Problem List 1. Right flank pain Monitor, repeat CT abd/pelvis w/ contrast, IV fluids 2. Anxiety and depression Monitor 3. Cannabis use Monitor Assessment/Plan Subjective: Patient is awake and alert. Objective: Patient was admitted for right flank pain. CT without contrast had no acute findings. Ultrasound gallbladder was negative. UTI showed no infection. Patient did however have an elevated white blood cell count which is currently improving with antibiotics. Plan: Repeat CT of the abdomen/pelvis with contrast. Continue IV fluids. Continue IV antibiotics. DC morphine. Add Dilaudid for intractable right flank pain. Plan discussed with: Patient, Other DONA SHOOK NP Apr 27, 2025 13:26
[2025-04-27] MEDS ORDERED: hydrALAZINE HCL 20 MG/ML VL IV PRN (13:30)
--- NOTE | 2025-04-27 16:10 | DVHSR ---
APPROVED REPORT EXAM: Two-dimensional and M-mode echocardiogram with Doppler and color Doppler. Blood Pressure: 135/90 mmHg INDICATION History of MR RISK FACTORS Height: 5'2", Weight: 137 DIMENSIONS LVDd4.1 (3.8-5.7cm)LA (2D)3.3 (1.9-4.0cm)Aortic Root3.0 (2.0-3.7cm) LVDs2.9 (2.5-4.0cm)LA (MM) (1.9-4.0cm)Aortic Cusp Exc1.7 (1.5-2.0cm) EF (%) 55.0 (55-70%)Rt. Atrium3.1 (1.9-4.0cm)Asc. Aorta cm IVSd1.1 (0.7-1.1cm)RV (D)2.9 (1.8-2.4cm) PWd0.9 (0.7-1.1cm) Mitral Valve MitralMitral Stenosis E wave1.13m/sMV Mean GR.mmHg A wave0.83m/sMV Peak GR.mmHg E/A ratio1.42D MVAcm2 DECEL [id number] 1/2 Timems Aortic Valve Aortic ValveAortic Stenosis V11.38m/Dede Mean GR.3mmHg V21.43m/Dede Peak GR.8mmHg LVOT Diameter1.9 (1.8-2.4cm)Doppler AVA2.73cm2 Pulmonic Valve V21.03m/s Tricuspid Valve TR Velocity2.56m/s [id number] Conclusion NORMAL LV EF AND IS 65% NORMAL VALVES NORMAL RV FUNCTION NORMAL RVSP NO EFFUSION
[2025-04-27] MEDS: ATORVASTATIN 20 MG TAB PO SCH (21:08)
[2025-04-27] MEDS: HYDROmorphone HCL 2 MG/ML VL/or syr IV PRN (22:15)
[2025-04-28] VITALS (8 sets, daily range): BP systolic 103–191; BP diastolic 65–112; PULSE 55–98; RESP 16–20; TEMP 97.3–98.8; O2SAT 56–100
--- NOTE | 2025-04-28 12:16 | DVH ---
CT CT ABD PELVIS W CON-ORAL IV INDICATION: intractable right flank pain EXAM DATE: 04/28/2025 11:32 AM COMPARISON: CT CT AB PEL WO CON-NO ORAL OR IV on DOS: 04/26/25, CT CT AB PEL WO CON-NO ORAL OR IV on D OS: 03/23/23 RADIATION DOSE: CTDIvol: 8.87 mGy, DLP: 413.15 mGy*cm PROCEDURE: Helical CT images were obtained of the abdomen and pelvis with IV contrast Sagittal and co megha reconstructions are provided. ORAL CONTRAST: Yes ADDITIONAL IMAGES / REFORMATS: None All CT sca ns at this medical facility are performed using dose modulation techniques as appropriate to a perfor med exam including the following: Automated exposure control was utilized; adjustment of the MA and/o r KV according to patient size; and use of iterative reconstruction technique. FINDINGS: LUNG BASE: Mild bibasilar atelectasis. LIVER: Normal. GALLBLADDER AND BILIARY TREE: No calcified gallstones. Normal caliber wall. No intra- or extrahepatic biliary ductal dilation. PANCREAS: Coarse calcification at the pancreatic head. SPLEEN: Normal. BOWEL: Moderate colonic diverticulosis. Normal appendix. Oral contrast reaches the cecum. ADRENALS: Normal. KIDNEYS AND URETER: Normal. BLADDER: Normal. REPRODUCTIVE ORGANS: Normal. LYMPH NODES:No lymphadenopathy. PERITONEUM: No ascites or free air. No other fluid collection. VESSELS: Scattered atherosclerotic calcifications are noted. RETROPERITONEUM: Normal. ABDOMINAL WALL: Normal. BONES: Scattered osseous degenerative changes are noted. IMPRESSION: No acute intraabdominal abnormality. Moderate colonic diverticulosis.
[2025-04-28] MEDS: IOHEXOL 300 MG/ML 100ML BOTTLE IJ ONE (13:49)
[2025-04-28] MEDS: OMNIPAQUE 12mg/ml 500ml ORAL SOLUTION PO ONE (13:49)
--- NOTE | 2025-04-28 13:55 | DVHPN2 ---
Progress Note - Dictate Date Seen: Apr 28, 2025 Medical Necessity Reason Pt with a Central, PICC or Fol: No vital signs Vital Sign Date Time Temp Pulse Resp B/P (MAP) Pulse Ox O2 Delivery O2 Flow Rate FiO2 04/28/25 13:48 150/94 04/28/25 12:53 98.7 73 20 100 98.7 04/27/25 20:00 Room Air* 0 21 Total Intake and Output 04/27/25 04/27/25 04/28/25 14:59 22:59 06:59 Intake Total 870 ml 573 ml Balance 870 ml 573 ml medications Current Medications Medications Dose Ordered Sig/Avelina Route Start Time Stop Time Status Last Admin Dose Admin Sodium Chloride 1,000 ml @ 60 mls/hr [id number] IV 04/26/25 20:15 04/27/25 19:28 60 MLS/HR Ondansetron HCl 4 mg Q4HP PRN IV 04/26/25 20:15 04/28/25 09:56 4 MG Ceftriaxone Sodium 50 ml @ 100 mls/hr DAILY@09 IV 04/27/25 20:00 04/28/25 09:56 100 MLS/HR Atorvastatin Calcium 40 mg HS PO 04/27/25 22:00 04/27/25 21:08 40 MG Losartan Potassium 50 mg DAILY PO 04/27/25 10:00 04/28/25 13:48 50 MG Metronidazole 100 ml @ 100 mls/hr Q8H IV 04/27/25 06:00 04/28/25 06:09 100 MLS/HR Fluoxetine HCl 20 mg DAILY PO 04/27/25 10:00 04/28/25 13:44 20 MG Guaifenesin 200 mg Q4HP PRN PO 04/27/25 03:45 Pantoprazole Sodium 40 mg DAILY IV 04/27/25 10:00 04/28/25 09:56 40 MG Enoxaparin Sodium 40 mg DAILY SC 04/27/25 10:00 04/28/25 09:56 40 MG Hydralazine HCl 10 mg Q6HP PRN IV 04/27/25 13:30 Hydromorphone HCl 0.5 mg Q4HPRN PRN IV 04/27/25 14:00 04/28/25 12:06 0.5 MG Temazepam 15 mg HSPRN PRN PO 04/27/25 14:00 objective General Appearance: alert, no distress HEENT: EOMI, PERRLA, normal external inspect of ears, no icterus, no nasal drainage Neck: no carotid bruit, no jugular venous distention (JVD), no lymphadenopathy Chest: normal thorax Respiratory: clear to auscultation, normal air movement Cardiovascular: regular rate and rhythm, no diastolic murmur, no jugular venous distention (JVD), no rub, no systolic murmur Abdominal: soft, no hepatomegaly, no mass, no splenomegaly, no tenderness Genitourinary: grossly normal external Musculoskeletal: no joint tenderness, no swelling Extremities: normal pulses, no calf tenderness, no clubbing, no cyanosis, no edema Skin: no bruising, no jaundice, no rash Neurological: alert, No focal deficit laboratory and microbiology Laboratory Tests 04/27/25 05:02 Test 04/27/25 05:02 Range/Units Serum Glucose 87 74-106 mg/dL Problem List 1. Right flank pain Monitor, repeat CT abd/pelvis w/ contrast, IV fluids 2. Anxiety and depression Monitor 3. Cannabis use Monitor Assessment/Plan Subjective: Patient is awake and alert. Objective: Patient has was admitted for intractable flank pain and leukocytosis. Repeat CT of the abdomen and pelvis with contrast has no acute findings. Patient states her pain is improving. Plan: Continue antibiotics obtain blood cultures and discharge planning for tomorrow. Plan discussed with: Patient, Other DONA SHOOK NP Apr 28, 2025 13:55
[2025-04-28 15:12] LABS: Hematocrit 42.0 % (36.0-46.0); Hemoglobin 14.2 g/dL (12.2-16.2); Mean Corpuscular Hemoglobin 32.5 pg (28.0-32.0); Mean Corpuscular Volume 96.1 fL (80.0-100.0); Nucleated Red Blood Cells % 0.1 %
[2025-04-28 15:18] LABS: Chloride 104 mmol/L (98-107); Sodium 140 mmol/L (136-145)
[2025-04-28 15:19] LABS: Anion Gap 9 (5-15); Carbon Dioxide 27 mmol/L (20-31)
[2025-04-28 15:20] LABS: Calcium 9.4 mg/dL (8.7-10.4); Potassium 3.3 mmol/L (3.5-5.1)
[2025-04-28 15:24] LABS: BUN/Creatinine Ratio 12.7 (10.0-20.0); Blood Urea Nitrogen 9 mg/dL (9-23); Glucose 98 mg/dL (74-106)
[2025-04-28 16:50] LABS: Hepatitis B Surface Antigen Negative (Negative)
[2025-04-28 16:53] LABS: Hepatitis B Surface Antigen Negative (Negative)
[2025-04-28 17:14] LABS: Hepatitis C Antibody Negative (Negative)
[2025-04-28 17:14] LABS: Hepatitis C Antibody Negative (Negative)
[2025-04-28] MEDS: LOSARTAN POTASSIUM 50 MG TAB PO SCH (20:46)
[2025-04-28] MEDS: TEMAZEPAM 15 MG CAP PO PRN (21:51)
[2025-04-29 05:00] VITALS: BP 136/78; PULSE 75; RESP 20; TEMP 97.9; O2SAT 98
[2025-04-29 08:00] VITALS: O2SAT 100
[2025-04-29 08:39] VITALS: BP 95/61; PULSE 75; RESP 16; TEMP 98.1; O2SAT 98
[2025-04-29 13:00] VITALS: BP 152/95; PULSE 79; RESP 16; TEMP 97.9; O2SAT 97
[2025-04-29] MEDS ORDERED: CEPH500C PO (13:19)
[2025-04-29] MEDS ORDERED: ZOFR4T PO (13:19)
[2025-04-29] MEDS ORDERED: HYDR-4902 PO (13:19)
[2025-04-29] MEDS ORDERED: METR-344 PO (13:19)
--- NOTE | 2025-04-29 13:21 | DVHDS2 ---
Discharge Summary Date of Admission Apr 26, 2025 at 20:11 Date of Discharge: Apr 29, 2025 Labs/Diagnostic Data: Laboratory Results Test 04/28/25 14:55 04/28/25 10:05 04/27/25 06:30 04/27/25 05:02 White Blood Count 11.6 10^3/uL (4.4-10.8) Red Blood Count 4.37 10^6/uL (4.0-5.20) Hemoglobin 14.2 g/dL (12.2-16.2) Hematocrit 42.0 % (36.0-46.0) Mean Corpuscular Volume 96.1 fL (80.0-100.0) Mean Corpuscular Hemoglobin 32.5 pg (28.0-32.0) Mean Corpuscular Hemoglobin Concent 33.9 g/dL (32.0-36.0) Red Cell Distribution Width 14.4 % (11.8-14.3) Platelet Count 175 10^3/uL (140-450) Mean Platelet Volume 8.5 fL (6.9-10.8) Neutrophils (%) (Auto) 86.4 % (37.0-80.0) Lymphocytes (%) (Auto) 8.7 % (10.0-50.0) Monocytes (%) (Auto) 4.6 % (0.0-12.0) Eosinophils (%) (Auto) 0.0 % (0.0-7.0) Basophils (%) (Auto) 0.3 % (0.0-2.0) Neutrophils # (Auto) 10.0 10 ^3/uL (1.6-8.6) Lymphocytes # (Auto) 1.0 10 ^3/uL (0.4-5.4) Monocytes # (Auto) 0.5 10 ^3/uL (0-1.3) Eosinophils # (Auto) 0 10 ^3/uL (0-0.8) Basophils # (Auto) 0 10 ^3/uL (0-0.2) Nucleated Red Blood Cells 0.1 % Sodium Level 140 mmol/L (136-145) Potassium Level 3.3 mmol/L (3.5-5.1) Chloride Level 104 mmol/L (98-107) Carbon Dioxide Level 27 mmol/L (20-31) Anion Gap 9 (5-15) Blood Urea Nitrogen 9 mg/dL (9-23) Creatinine 0.71 mg/dL (0.550-1.02) Glomerular Filtration Rate Calc 97 mL/min (>90) BUN/Creatinine Ratio 12.7 (10.0-20.0) Serum Glucose 98 mg/dL (74-106) Calcium Level 9.4 mg/dL (8.7-10.4) Stool for White Cells None seen Influenza Type A Antigen Negative (Negative) Influenza Type B Antigen Negative (Negative) SARS-CoV-2 Antigen (Rapid) Negative (NEGATIVE) Total Bilirubin 0.9 mg/dL (0.2-1.0) Aspartate Amino Transferase (AST) 49 U/L (13-40) Alanine Aminotransferase (ALT) 21 U/L (7-40) Alkaline Phosphatase 78 U/L (46-116) Total Protein 6.7 g/dL (5.7-8.2) Albumin 4.0 g/dL (3.2-4.8) Hepatitis A IgM Antibody Negative Hepatitis B Surface Antigen Negative (Negative) Hepatitis B Core IgM Antibody Negative (Negative) Hepatitis C Antibody Negative (Negative) Test 04/26/25 21:16 04/26/25 20:28 04/26/25 15:00 04/26/25 10:37 Prothrombin Time 10.6 sec (9.3-11.8) Prothrombin Time INR 1.00 (0.9-1.15) Activated Partial Thromboplast Time 26.8 SEC (24.5-34.5) Lactic Acid Level 1.5 mmol/L (0.4-2.0) Urine Color Yellow (Yellow) Urine Clarity Turbid (Clear) Urine pH 6.0 (5.0-9.0) Urine Specific Point 1.032 (1.001-1.035) Urine Protein 2+ (Negative) Urine Ketones 2+ (Negative) Urine Blood 2+ /uL (Negative) Urine Nitrite Negative (Negative) Urine Bilirubin Negative (Negative) Urine Urobilinogen Normal mg/dL (Negative) Urine Leukocyte Esterase Negative /uL (Negative) Urine RBC 4 /hpf (0 - 4) Urine Microscopic WBC 2 /HPF (0-5) Urine Squamous Epithelial Cells Few /hpf (<5) Urine Bacteria None seen /hpf (None Seen) Urine Mucus Few (None Seen) Urine Glucose Normal mg/dL (Normal) Urine Opiates Screen Neg (NEGATIVE) Urine Fentanyl Screen Neg (NEGATIVE) Urine Barbiturates Screen Neg (NEGATIVE) Urine Phencyclidine Screen Neg (NEGATIVE) Urine Amphetamines Screen Neg (NEGATIVE) Urine Benzodiazepines Screen Neg (NEGATIVE) Urine Cocaine Screen Neg (NEGATIVE) Urine Cannabinoids Screen Pos (NEGATIVE) Hemoglobin A1c 5.5 % A1C (<5.7) Phosphorus Level 2.8 mg/dL (2.4-5.1) Magnesium Level 2.0 mg/dL (1.6-2.6) Triglycerides Level 99 mg/dL (< 150) Cholesterol Level 277 mg/dL (< 200) LDL Cholesterol 182 mg/dL (< 100) HDL Cholesterol 89 mg/dL (40-59) Lipase 32 U/L (12-53) Vitamin B12 Level 573 pg/mL (211-911) Vitamin D 25-Hydroxy 33.5 ng/mL (30.0-100) Thyroid Stimulating Hormone (TSH) 1.97 uIU/mL (0.55-4.78) Plasma/Serum Blood Alcohol < 3.0 mg/dL (<10) Other Laboratory Tests 04/28/25 14:55 Brief Hx & Hospital Course: Ayah Mauricio is a 59 year old female patient who presents to ED with chief complaint of intolerable flank pain 05/16 which was triggered after receiving a massage approximately 3 days ago, with posterior multiple episodes of non bloody emesis (more than 10 episodes), associated with only 3 episodes of diuresis in past three days. Patient also reports chills. Denies any other associated symptoms Patient was admitted on April 26, 2025 for flank pain. Patient had sepsis most likely due to gastroenteritis. Patient was given antibiotics and her condition improved. Patient was discharged home on oral antibiotics for 10 days. She was instructed to follow-up with her PCP in 1 week. Patient also was given Protonix, states she had a history of GERD. There were no complaints or new complaints upon discharge, all questions and concerns were answered. Patient was advised to return to the ER or call 911 if any headaches, dizziness, shortness of breath, chest pain, bleeding, fevers, or worsening of medical condition. Patient/Family was counseled about treatment plan, medications, possible side effects, patient verbalized understanding. All questions were answered to the best of my ability. The patient symptoms improved and they are okay to be DC. Condition at Discharge: Stable Final Diagnosis/Problems List sepsis unknown orgin flank pain Discharge Disposition: Home Discharge Instruct/Medications Diet: Cardiac 2g Na,low cholest Activity: No Restrictions, As Tolerated Follow Up/Referral: pcp 1 week Medications: as prescribed Scheduled Cephalexin Monohydrate (Cephalexin), 1 CAP PO BID Metronidazole (Flagyl), 1 TAB PO TID Pantoprazole Sodium Sesquihydr (Protonix), 40 MG PO DAILY Scheduled PRN Hydrocodone-Acetaminophen (Hydrocodone Bitartrate/AC 5-325 mg), 1 TAB PO Q8HP PRN Ondansetron Odt 4MG Tab (Zofran Po), 4 MG PO [id number] PRN Discharge Statement: "Patient was advised to return to the ER or call 911 if any headaches, dizziness, shortness of breath, chest pain, abdominal pain, bleeding, fevers, or worsening of medical condition. Patient was counseled about treatment plan, medications, possible side effects, patientverbalized understanding. All questions were answered to the best of my ability. This discharge took greater then 30 minutes in planning, reviewing documentation, counseling the patient, and discussing with other team members." ASSESSMENT ASSESSMENT Assessment sepsis unknown orgin flank pain DONA SHOOK NP Apr 29, 2025 13:21
[2025-04-29 15:40] VITALS: TEMP 36.7
[2025-04-29] MEDS ORDERED: PANT40TA2 PO (16:00)
== END 2025-04-29 16:57 | disposition home or self-care (01) | DRG 720 ==
LOC: ER 10:12 → OVERFLOW 20:11 → TELE-WESTW 21:25
PROVIDERS: ADMIT Nurse Practitioner; ATTEND Nurse Practitioner
DX: A41.9 Sepsis, unspecified organism (principal); N17.0 Acute kidney failure with tubular necrosis; K52.9 Noninfective gastroenteritis and colitis, unspecified; E87.6 Hypokalemia; F41.9 Anxiety disorder, unspecified; Z20.822 Contact with and (suspected) exposure to COVID-19; F32.A Depression, unspecified; F90.9 Attention-deficit hyperactivity disorder, unspecified type; E78.5 Hyperlipidemia, unspecified; I10 Essential (primary) hypertension; E80.7 Disorder of bilirubin metabolism, unspecified; R31.29 Other microscopic hematuria; I34.0 Nonrheumatic mitral (valve) insufficiency; G89.29 Other chronic pain; F12.10 Cannabis abuse, uncomplicated; K21.9 Gastro-esophageal reflux disease without esophagitis; Z98.51 Tubal ligation status; Z80.49 Family history of malignant neoplasm of other genital organs; Z87.891 Personal history of nicotine dependence; Z71.6 Tobacco abuse counseling
CPT/HCPCS: 36415; 74176; 74177; 76705; 76775; 80048; 80053; 80061; 80074; 80307; 80320; 81001; 82306; 82607; 83036; 83605; 83690; 83735; 84100; 84443; 85025; 85048; 85610; 85730; 86803; 87040; 87045; 87086; 87340; 87426; 87427; 87804; 93005; 93306; G0378; J2405; J2470; J3480; J3490